=== PATIENT | female | born 1955 | race Two or more races ===

== ENCOUNTER 2017-05-11 10:11 | Emergency (ER) | payer OTHER ==
[~2017-05-11] VITALS: Ht 167.6 cm; Wt 70.3 kg
[2017-05-11] MEDS ORDERED: LOSARTAN POTAS100 MG (10:45)
[2017-05-11] MEDS ORDERED: PNEU16DI2 (10:45)
[2017-05-11] MEDS ORDERED: SYNTHROID200 MCG (10:46)
== END 2017-05-11 14:54 | disposition home or self-care (01) ==
LOC: ER 10:11
DX: R42 Dizziness and giddiness (principal)

== ENCOUNTER 2017-05-15 08:22 | Outpatient (CLI) | payer OTHER ==
[~2017-05-15 08:22] MED LIST: LOSARTAN POTAS100 MG; PNEU16DI2; SYNTHROID200 MCG
== END 2017-05-15 13:35 | disposition home or self-care (01) ==
LOC: MRI 08:22
DX: I63.50 Cerebral infarction due to unspecified occlusion or stenosis of unspecified cerebral artery (principal)
CPT/HCPCS: 70551

== ENCOUNTER → 2018-05-03 | Emergency (ER) | payer OTHER ==
[~2018-05-03] VITALS: Ht 167.6 cm; Wt 63.5 kg
[~2018-05-03] MED LIST changes: +AMLODIPINE BESYL5 MG; +METOPROLOL SUCC25 MG
== END | disposition home or self-care (01) ==
LOC: ER 19:56
DX: J22 Unspecified acute lower respiratory infection (principal)

== ENCOUNTER 2021-11-11 13:24 | Outpatient (CLI) | payer OTHER | END 2021-11-11 13:40 | disposition home or self-care (01) | LOC: PPH VACUNA 13:24 | PROVIDERS: ATTEND Emergency Medicine Pediatric Emergency Medicine | DX: Z23 Encounter for immunization (principal) ==

== ENCOUNTER → 2022-05-23 | Emergency (ER) | payer OTHER ==
[~2022-05-23] VITALS: Ht 167.6 cm; Wt 70.3 kg
== END | disposition home or self-care (01) ==
LOC: ER 10:29
DX: S00.81XA Abrasion of other part of head, initial encounter (principal); W18.30XA Fall on same level, unspecified, initial encounter; Y93.9 Activity, unspecified; Y92.481 Parking lot as the place of occurrence of the external cause; Z88.0 Allergy status to penicillin; Z88.6 Allergy status to analgesic agent; E11.9 Type 2 diabetes mellitus without complications; I10 Essential (primary) hypertension; E05.90 Thyrotoxicosis, unspecified without thyrotoxic crisis or storm

== ENCOUNTER → 2022-10-06 13:14 | Outpatient (CLI) | payer OTHER | END | disposition home or self-care (01) | LOC: EKG 13:14 | PROVIDERS: ATTEND Ophthalmology | DX: I11.9 Hypertensive heart disease without heart failure (principal); H25.011 Cortical age-related cataract, right eye; Z98.41 Cataract extraction status, right eye ==

== ENCOUNTER 2025-02-02 11:54 | Outpatient (CLI) | payer OTHER | END 2025-02-02 12:03 | disposition home or self-care (01) | LOC: RAD 11:54 | PROVIDERS: ATTEND Internal Medicine Cardiovascular Disease | DX: M12.9 Arthropathy, unspecified (principal) ==